=== PATIENT | female | born 1965 ===

== ENCOUNTER 2022-03-07 10:33 | Day surgery (SDC) | payer BC ==
[~2022-03-07 10:33] MED LIST: Lactated Ringers 1,000 ML IV SCH; Lidocaine 1%/Sod Bicarbonate in NS 8.4% 1 ML Syringe IDERM PRN; Sodium Chloride 0.9% 10 ML Syringe FLUSH PRN; Sodium Chloride 0.9% 10 ML Syringe FLUSH SCH
[2022-03-07] MEDS ORDERED: Midazolam 1 MG/ML 2 ML SDV ONE (10:45)
[2022-03-07] MEDS ORDERED: Propofol 200 MG/20 ML SDV ONE ×2 (10:45)
[2022-03-07] MEDS ORDERED: Lidocaine 1% 5 ML VIAL ONE (10:48)
[2022-03-07] MEDS ORDERED: fentaNYL 100 MCG/2 ML SDV ONE (10:50)
[2022-03-07] MEDS ORDERED: Dexmedetomidine 200 MCG/2 ML SDV ONE (12:20)
[2022-03-07] MEDS ORDERED: Bupivacaine 0.5%/EPINEPHrine 1:200,000 50 ML MDV ONE (12:40)
[2022-03-07] MEDS ORDERED: Phenylephrine HCl In 0.9% NaCl 1 MG/10 ML Vial ONE (12:52)
== END 2022-03-07 14:28 | disposition home or self-care (01) ==
LOC: JD.SDS 10:33
PROVIDERS: ATTEND Surgery
DX: K62.4 Stenosis of anus and rectum (principal); K62.89 Other specified diseases of anus and rectum; I12.9 Hypertensive chronic kidney disease with stage 1 through stage 4 chronic kidney disease, or unspecified chronic kidney disease; N18.30 Chronic kidney disease, stage 3 unspecified; K21.9 Gastro-esophageal reflux disease without esophagitis; E78.00 Pure hypercholesterolemia, unspecified; E87.1 Hypo-osmolality and hyponatremia; E03.9 Hypothyroidism, unspecified; M81.0 Age-related osteoporosis without current pathological fracture; G43.109 Migraine with aura, not intractable, without status migrainosus; F17.210 Nicotine dependence, cigarettes, uncomplicated; Z79.899 Other long term (current) drug therapy; Z98.890 Other specified postprocedural states; Z90.710 Acquired absence of both cervix and uterus; Z96.649 Presence of unspecified artificial hip joint
CPT/HCPCS: 46606; J2250; J2704; J3010; J3490; J7120

== ENCOUNTER 2023-12-08 05:21 | Emergency (ER) | payer BC ==
[2023-12-08] MEDS: predniSONE 20 MG Tab PO ONE (05:54)
== END 2023-12-08 08:15 | disposition home or self-care (01) ==
LOC: JD.ED 05:21
DX: T78.3XXA Angioneurotic edema, initial encounter (principal); I10 Essential (primary) hypertension; Z90.710 Acquired absence of both cervix and uterus; Z79.899 Other long term (current) drug therapy; X58.XXXA Exposure to other specified factors, initial encounter
CPT/HCPCS: 93005; 99283; J7512